=== PATIENT | female | born 1970 | race African-American/Black ===

== ENCOUNTER → 2017-09-02 | Outpatient (CLI) | payer OTHER ==
[2015-03-05 18:30] VITALS: BP 122/76
--- NOTE | 2017-09-02 15:36 | RAD ---
DATE: 09/02/2017 EXAM: DIGITAL SCREEN BILAT W/CAD HISTORY: Screening Mammogram COMPARISON: Screening mammogram 05/06/2016, 05/05/2015 This study was interpreted with the benefit of Computerized Aided Detection (CAD). The breast parenchyma is heterogeneously dense, which could reduce sensitivity of mammography. Breast parenchyma level C. FINDINGS: Bilateral digital 2-D and 3-D tomosynthesis CC and MLO views. No suspicious mass, calcification or architectural distortion. No significant change from prior examination IMPRESSION: No mammographic evidence of malignancy. Recommend routine screening mammogram in 12 months. BI-RADS CATEGORY: 1 NEGATIVE RECOMMENDED FOLLOW-UP: 12M 12 MONTH FOLLOW-UP PQRS compliance statement: Patient information was entered into a reminder system with a target due date for the next mammogram. Mammography is a sensitive method for finding small breast cancers, but it does not detect them all and is not a substitute for careful clinical examination. A negative mammogram does not negate a clinically suspicious finding and should not result in delay in biopsying a clinically suspicious abnormality. "Our facility is accredited by the [employer] Mammography [employer]."
== END | disposition home or self-care (01) ==
LOC: MAMMO 09:52
DX: Z12.31 Encounter for screening mammogram for malignant neoplasm of breast (principal)
CPT/HCPCS: 77067

== ENCOUNTER → 2018-12-01 | Outpatient (CLI) | payer OTHER ==
[2015-03-05 18:30] VITALS: BP 122/76
--- NOTE | 2018-12-01 10:40 | RAD ---
History: Routine screening. Technique: Bilateral digital mammographic routine views were obtained with CAD - computer aided detection. Comparison: Previous mammogram from 2018 and 2016. Findings: Breast Tissue Density C : The breast tissue is heterogeneously dense which may obscure small masses. There are no suspicious masses, microcalcifications or areas of architectural distortion. Impression: No suspicious findings. BI-RADS Category 1: Negative. Normal interval followup. Your mammogram demonstrates that you have dense breast tissue, which could hide abnormalities, and if you have other risk factors for breast cancer that have been identified, you might benefit from supplemental screening tests that may be suggested by your ordering physician. Dense breast tissue, in and of itself, is a relatively common condition. This information is not provided to cause undue concern, but rather to raise your awareness and to promote discussion with your physician regarding the presence of other risk factors, in addition to dense breast tissue. A report of your mammography results will be sent to you and your physician. You should contact your physician if you have any questions or concerns regarding this report. A mammogram does not have 100% sensitivity and therefore a negative imaging study should not delay further work up of a suspicious abnormality. The patient will receive a letter with the results in the mail. Patient information is entered into the reminder system with a target due date for the next screening mammogram. The patient will receive a reminder. "Our facility is accredited by the [employer]amm[employer]."
== END | disposition home or self-care (01) ==
LOC: MAMMO 08:06
PROVIDERS: ATTEND Nurse Practitioner Family
DX: Z12.31 Encounter for screening mammogram for malignant neoplasm of breast (principal); E55.9 Vitamin D deficiency, unspecified; Z79.51 Long term (current) use of inhaled steroids; Z79.899 Other long term (current) drug therapy; Z88.2 Allergy status to sulfonamides
CPT/HCPCS: 77063; 77067

== ENCOUNTER → 2020-12-19 | Outpatient (CLI) | payer OTHER ==
[2015-03-05 18:30] VITALS: BP 122/76
--- NOTE | 2020-12-19 08:59 | RAD ---
EXAM: Bilateral digital screening mammogram with tomosynthesis. HISTORY: 50-year-old female presents for screening mammography. TECHNIQUE: Full-field digital craniocaudal and mediolateral oblique 2D and 3D tomosynthesis images of both breasts are obtained for evaluation. Computer aided detection was applied. COMPARISON: 12/01/2018 and 05/06/2016 BREAST PARENCHYMAL DENSITY: Level C - Heterogeneously dense. FINDINGS: There is no new suspicious mass, microcalcification or region of architectural distortion. There is asymmetry within the 8:30 position of the right breast at mid depth in the mediolateral obli que projection. This is more conspicuous compared to the most recent study. However, this stable comp ared to a study performed 05/06/2016. The stability and absence of a correlate in the craniocaudal pr ojection favors benign summation artifact. IMPRESSION: BI-RADS Category 2: Benign finding(s). RECOMMENDATION: Annual mammography is recommended. If your mammogram demonstrates that you have dense breast tissue, which could hide abnormalities, and if you have other risk factors for breast cancer that have been identified, you might benefit from s upplemental screening tests that may be suggested by your ordering physician. Dense breast tissue, i n and of itself, is a relatively common condition. This information is not provided to cause undue c oncern, but rather to raise your awareness and to promote discussion with your physician regarding th e presence of other risk factors, in addition to dense breast tissue. A report of your mammography re sults will be sent to you and your physician. You should contact your physician if you have any ques tions or concerns regarding this report. Mammography is a sensitive method for finding small breast cancers, but it does not detect them all a nd is not a substitute for careful clinical examination. A negative mammogram does not negate a clin ically suspicious finding and should not result in delay in biopsying a clinically suspicious abnorma lity. PQRS compliance statement - Patient information was entered into a reminder system with a target due date for the next mammogram. "Our facility is accredited by the [employer]ammography [employer]." Electronically signed by: Cassie Jimenez MD (12/19/2020 8:57 AM) [id number]
== END ==
LOC: MAMMO 07:50
PROVIDERS: ATTEND Nurse Practitioner Family
DX: Z12.31 Encounter for screening mammogram for malignant neoplasm of breast (principal)
CPT/HCPCS: 77063; 77067

== ENCOUNTER 2021-01-17 15:33 | Emergency (ER) | payer OTHER ==
[~2021-01-17] VITALS: Ht 170.2 cm; Wt 79.5 kg
[2021-01-17 15:38] VITALS: BP 122/76
--- NOTE | 2021-01-17 16:49 | PHYS DOC ---
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 See HPI for pertinent positives and negative responses, other mancini all other systems are negative, non-pertinent or non-contributory (XAVIER LOBO DO) Allergies Allergies Allergies Coded Allergies Type Severity Reaction Last Updated Verified Sulfa (Sulfonamide Antibiotics) Allergy Mild 03/05/15 Yes shrimp Allergy Unknown 01/17/21 Yes Uncoded Allergies Type Severity Reaction Last Updated Verified COVID VACCINE Allergy Unknown 01/17/21 (XAVIER LOBO DO) Physical Exam Physical Exam Constitutional: Well developed, well nourished, no acute distress, non-toxic appearance. HENT: Normocephalic, atraumatic, bilateral external ears normal, oropharynx moist, no oral exudates, nose normal. Eyes: PERRLA, EOMI, conjunctiva normal, no discharge. Neck: Normal range of motion, no tenderness, supple, no stridor. Cardiovascular: Heart rate regular, sinus rhythm, no murmurs rubs or gallops Lungs & Thorax: Bilateral breath sounds clear to auscultation Abdomen: Bowel sounds normal, soft, no tenderness, no masses, no pulsatile masses. Nonsurgical abdomen, no peritoneal signs Skin: Warm, dry, no erythema, no rash. Back: No tenderness, no CVA tenderness. Extremities: No tenderness, no cyanosis, no clubbing, ROM intact, no edema. Neurologic: Alert and oriented X 3, grossly normal motor & sensory function, no focal deficits noted. Psychologic: Affect normal, judgement normal, mood normal. (XAVIER LOBO DO) Current Patient Data Vital Signs Vital Signs Date Time Temp Pulse Resp B/P (MAP) Pulse Ox O2 Delivery O2 Flow Rate FiO2 01/17/21 15:38 98.3 94 16 122/76 96 Room Air (XAVIER LOBO DO) EKG EKG EKG ordered and interpreted by myself at 1750 hrs. as sinus rhythm at 67 bpm, unremarkable intervals, no axis deviation, no acute ischemic findings, no STEMI (XAVIER LOBO DO) Radiology/Procedures Radiology/Procedures INDICATION: Reason: epigastric pain,allergic reaction.pt states hx of DIPNECH / Spl. Instructions: / History: COMPARISON: March 2012 FINDINGS: Single view of chest obtained. Postoperative changes to the right lung with suture line seen. No definite new region of consolidation or edema. Scoliotic curvature the spine. Cardiac silhouette unremarkable IMPRESSION: * No focal airspace consolidation or edema. Electronically signed by: Edmundo Mayberry MD (01/17/2021 5:29 PM) Principle Power-[id number] (XAVIER LOBO DO) Radiology/[place] [address] IMAGING REPORT Signed PATIENT: MARIAH KELLOGG ACCOUNT: [id number] : 1970 LOCATION: ER AGE: 50 SEX: F EXAM STATUS: REG ER ORD. PHYSICIAN: XAVIER LOBO DO REASON: epigastric pain,allergic reaction.pt states hx of DIPNECH PROCEDURE: CHEST AP ONLY INDICATION: Reason: epigastric pain,allergic reaction.pt states hx of DIPNECH / Spl. Instructions: / History: COMPARISON: March 2012 FINDINGS: Single view of chest obtained. Postoperative changes to the right lung with suture line seen. No definite new region of consolidation or edema. Scoliotic curvature the spine. Cardiac silhouette unremarkable IMPRESSION: * No focal airspace consolidation or edema. Electronically signed by: Edmundo Mayberry MD (01/17/2021 5:29 PM) DESAgenda-[id number] DICTATED AND SIGNED BY: EDMUNDO MAYBERRY MD DATE: 01/17/21 172 CC: XAVIER LOBO DO; ANASTASIA BURR INSULATION SUPERVISOR ~MTH0 0 (ELI MONET MD) Heart Score Risk Factors: Risk Factors: DM, Current or recent (<one month) smoker, HTN, HLP, family hist ory of CAD, obesity. Risk Scores: Risk Factors: DM, Current or recent (<one month) smoker, HTN, HLP, family history of CAD, obesity. (XAVIER LOBO DO) C/O Chest Pain: N/A (ELI MONET MD) Course & Med Decision Making Course & Med Decision Making Pertinent Labs and Imaging studies reviewed. (See chart for details) [] (XAVIER LOBO DO) Course & Med Decision Making See Dr. Lobo chart for details. Impression: 1. Upper Air Infection (ELI MONET MD) Dragon Disclaimer Dragon Disclaimer This electronic medical record was generated, in whole or in part, using a voice recognition dictation system. (XAVIER LOBO DO) Departure Departure: Referrals: ANASTASIA BURR NP (PCP) Scripts Prednisone (PREDNISONE) 50 Mg Tablet 10 MG PO taper for allergy, #100 TAB Prov: ELI MONET MD 01/17/21 Ipratropium/Albuterol Sulfate (DUONEB 0.5-3(2.5) MG/3 ML) 3 Ml Ampul.neb 3 ML NEB QID for allergy for 30 Days, #120 EACH Prov: ELI MONET MD 01/17/21 Albuterol Sulfate (VENTOLIN HFA INHALER) 18 Gm Hfa.aer.ad 2 PUFF IH PRN Q4HRS PRN for FOR ASTHMA for 30 Days, EACH 0 Refills Prov: ELI MONET MD 01/17/21 Hydroxyzine Hcl (HYDROXYZINE HCL) 25 Mg Tablet 25 MG PO TID for Allergy for 30 Days, #90 TAB Prov: ELI MONET MD 01/17/21 Prednisone (PREDNISONE) 50 Mg Tablet 50 MG PO DAILY for allergy for 5 Days, #5 TAB Prov: ELI MONET MD 01/17/21 Famotidine (FAMOTIDINE) 40 Mg/5 Ml Oral.susp 40 MG PO BID for Allergy for 30 Days, LIQUID Prov: ELI MONET MD 01/17/21 Epinephrine (EPIPEN 2-RAMONITA) 0.3 Mg/0.3 Ml Auto.injct 0.3 MG IJ PRN for allergic, #10 SYR Prov: ELI MONET MD 01/17/21 Attending Signature Attending Signature I have participated in the care of this patient and I have reviewed and agree with all pertinent clinical information above including history, exam, and recommendations. (ELI MONET MD) Attending Signature Attending Signature I have participated in the care of this patient and I have reviewed and agree with all pertinent clinical information above including history, exam, and recommendations. (ELI MONET MD) XAVIER LOBO DO Jan 17, 2021 16:49 ELI MONET MD Jan 17, 2021 20:11
--- NOTE | 2021-01-17 17:32 | RAD ---
INDICATION: Reason: epigastric pain,allergic reaction.pt states hx of DIPNECH / Spl. Instructions: / History: COMPARISON: March 2012 FINDINGS: Single view of chest obtained. Postoperative changes to the right lung with suture line seen. No definite new region of consolidatio n or edema. Scoliotic curvature the spine. Cardiac silhouette unremarkable IMPRESSION: * No focal airspace consolidation or edema. Electronically signed by: Bakari Davis MD (01/17/2021 5:29 PM) [id number]
--- NOTE | 2021-01-17 18:20 | EKG ---
[address] [address] Test Date: 2021-01-17 Test Time: 17:43:16 Pat Name: MARIAH KELLOGG Department: Room: Gender: F Academic Records Specialist: SUSAN : 1970 Requested By: XAVIER LOBO Order Number: [id number] Reading MD: Measurements Intervals [place] Rate: 67 P: 23 WI: 122 QRS: 34 QRSD: 76 T: 53 QT: 388 QTc: 413 Interpretive Statements SINUS RHYTHM NORMAL ECG RI6.02 No previous ECG available for comparison
[2021-01-17] MEDS: hydrOXYzine HCL 25 MG TABLET PO PRN (18:24)
[2021-01-17] MEDS: FAMOTIDINE 20 MG/2 ML VIAL IVP ONE (18:25)
[2021-01-17 18:47] LABS: BASO % 0 % (0-3); EOS % 0 % (0-3); HEMATOCRIT 40.4 % (36.0-47.0); HEMOGLOBIN 13.5 g/dL (12.0-15.5); LYMPH % 11 % (24-48); MEAN CORPUSCULAR HEMOGLOBIN 30 pg (25-35); MEAN CORPUSCULAR HGB CONC 33 g/dL (31-37); MEAN CORPUSCULAR VOLUME 91 fL (79-100); MONO # 0.4 x10^3/uL (0.0-1.1); MONO % 5 % (0-9); NEUT # 8.1 x10^3uL (1.8-7.7); NEUT % 85 % (31-73); PLATELET COUNT 251 x10^3/uL (140-400); RED BLOOD COUNT 4.43 x10^6/uL (3.50-5.40); RED CELL DISTRIBUTION WIDTH 16.8 % (11.5-14.5); WHITE BLOOD COUNT 9.5 x10^3/uL (4.0-11.0)
[2021-01-17 21:04] LABS: CALCIUM 8.8 mg/dL (8.5-10.1); CREATININE 0.8 mg/dL (0.6-1.0); GFR 92.6; POTASSIUM 4.2 mmol/L (3.5-5.1)
[2021-01-17 21:10] LABS: ALBUMIN 3.5 g/dL (3.4-5.0); ALBUMIN/GLOBULIN RATIO 1.1 (1.0-1.7); TOTAL BILIRUBIN 0.4 mg/dL (0.2-1.0); TOTAL PROTEIN 6.8 g/dL (6.4-8.2)
[2021-01-17] MEDS ORDERED: EPIN0.3A4 IJ (21:10)
[2021-01-17] MEDS ORDERED: IPRA3AMP29 NEB (21:10)
[2021-01-17] MEDS ORDERED: HYDR25TA PO (21:10)
[2021-01-17] MEDS ORDERED: FAMO40OR4 PO (21:10)
[2021-01-17] MEDS ORDERED: ALBU2.5V8 IH (21:10)
[2021-01-17] MEDS ORDERED: PRED50TA PO ×2 (21:10→21:15)
== END 2021-01-17 21:28 | disposition home or self-care (01) ==
LOC: ER 15:33
DX: R10.13 Epigastric pain (principal); T78.40XA Allergy, unspecified, initial encounter; J45.909 Unspecified asthma, uncomplicated; K21.9 Gastro-esophageal reflux disease without esophagitis; X58.XXXA Exposure to other specified factors, initial encounter
CPT/HCPCS: 36415; 71045; 80053; 83690; 84484; 85025; 93005; 96374; 99285; J3490

== ENCOUNTER 2021-02-02 16:50 | Emergency (ER) | payer OTHER ==
[~2021-02-02] VITALS: Ht 170.2 cm; Wt 75.0 kg
[~2021-02-02 16:50] MED LIST: ALBU2.5V8 IH; EPIN0.3A4 IJ; FAMO40OR4 PO; HYDR25TA PO; IPRA3AMP29 NEB; PRED50TA PO
[2021-02-02 17:56] VITALS: BP 115/75
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
== END 2021-02-02 19:15 | disposition home or self-care (01) ==
LOC: ER 16:50
DX: Z77.098 Contact with and (suspected) exposure to other hazardous, chiefly nonmedicinal, chemicals (principal); J45.909 Unspecified asthma, uncomplicated; K21.9 Gastro-esophageal reflux disease without esophagitis; Z88.2 Allergy status to sulfonamides; Z88.8 Allergy status to other drugs, medicaments and biological substances; Z91.013 Allergy to seafood; Z59.0 Homelessness
CPT/HCPCS: 99283